=== PATIENT | female | born 1970 | race African-American/Black ===

== ENCOUNTER 2018-01-16 11:47 | Emergency (ER) | payer MEDICAID ==
[~2018-01-16] VITALS: Ht 162.6 cm; Wt 63.0 kg
[2018-01-16] MEDS ORDERED: ALBUTEROL (0.083%) 2.5MG/3ML NEB HHN STA (12:40)
[2018-01-16] MEDS ORDERED: IPRATROPIUM BROMIDE (0.02%) 0.5MG/2.5ML NEB HHN STA (12:40)
[2018-01-16] MEDS ORDERED: METHYLPREDNISOLONE SOD SUCC 125 MG/2 ML VIAL IV STA (12:40)
[2018-01-16] MEDS ORDERED: METHYLPREDNISOLONE SOD SUCC 125 MG/2 ML VIAL IM ONE (13:45)
[2018-01-16] MEDS ORDERED: ALBUTEROL (0.083%) 2.5MG/3ML NEB HHN ONE (15:00)
[2018-01-16] MEDS ORDERED: IPRATROPIUM BROMIDE (0.02%) 0.5MG/2.5ML NEB HHN ONE (15:00)
[2018-01-16 16:43] VITALS: BP 160/94
== END 2018-01-16 16:28 | disposition home or self-care (01) ==
LOC: ER 12:45
DX: J45.901 Unspecified asthma with (acute) exacerbation (principal); J06.9 Acute upper respiratory infection, unspecified; E11.9 Type 2 diabetes mellitus without complications; I10 Essential (primary) hypertension
CPT/HCPCS: 71045; 94640; 96372; 99284; J2930; J7611

== ENCOUNTER 2018-03-20 08:51 | Inpatient (IN) | payer MEDICAID ==
[~2018-03-20] VITALS: Ht 165.1 cm; Wt 136.1 kg
[2018-03-20] MEDS ORDERED: IPRATROPIUM BROMIDE (0.02%) 0.5MG/2.5ML NEB HHN STA ×3 (09:30→13:06)
[2018-03-20] MEDS ORDERED: METHYLPREDNISOLONE SOD SUCC 125 MG/2 ML VIAL IV STA (09:30)
[2018-03-20] MEDS ORDERED: MAGNESIUM 2 G PREMIX 50 ML IV ONE (09:30)
[2018-03-20] MEDS ORDERED: ALBUTEROL (0.083%) 2.5MG/3ML NEB HHN STA ×3 (09:30→13:06)
[2018-03-20] MEDS ORDERED: ALBUTEROL (0.5%) 2.5MG/0.5ML NEB HHN ONE ×3 (09:45→13:30)
[2018-03-20] MEDS ORDERED: ALBUTEROL (0.083%) 2.5MG/3ML NEB ONE ×3 (09:46→13:31)
[2018-03-20] MEDS ORDERED: IPRATROPIUM BROMIDE (0.02%) 0.5MG/2.5ML NEB ONE ×3 (09:46→13:31)
[2018-03-20 12:11] LABS: BASOPHILS % 0.3 % (0.0-2.0); HEMATOCRIT. 41.4 % (36.0-48.0); HEMOGLOBIN. 13.1 g/dL (12.0-16.0); LYMPHOCYTES % 9.2 % (20.0-50.0); MEAN CORPUSCULAR HEMOGLOBIN 27.7 pg (28.0-32.0); MEAN CORPUSCULAR VOLUME 87.1 fL (81.0-99.0); MEAN PLATELET VOLUME 10.1 fl (7.4-10.4); MONOCYTES % 1.6 % (2.0-8.0); NEUTROPHILS % 88.9 % (40.0-76.0); PLATELET 258 x1000/uL (130-400); RED BLOOD CELL COUNT 4.75 mill/uL (4.2-5.4); RED CELL DISTRIBUTION WIDTH 14.1 % (11.6-14.6)
[2018-03-20 12:13] LABS: CHLORIDE 102 mEq/L (98-107)
[2018-03-20 12:22] LABS: D-DIMER 0.24 mg/L FEU (<0.50); INR 1.1; PROTHROMBIN TIME 11.1 sec (9.1-11.1)
[2018-03-20] MEDS ORDERED: SODIUM CHLORIDE 0.9% 1,000 ML IV ONE (12:31)
[2018-03-20 15:00] LABS: CLARITY URINE CLEAR (CLEAR); COLOR URINE YELLOW (YELLOW); KETONES URINE 1+ (NEGATIVE); LEUKOCYTE ESTERASE URINE NEGATIVE (NEGATIVE); NITRITE URINE NEGATIVE (NEGATIVE); OCCULT BLOOD URINE TRACE (NEGATIVE); PROTEIN URINE 3+ (NEGATIVE); SPECIFIC GRAVITY URINE 1.033 (1.005-1.030); UROBILINOGEN URINE 0.2 E.U./dL (0.2-1.0)
[2018-03-20] MEDS ORDERED: IPRATROPIUM/ALBUTEROL 0.5-3(2.5)MG/3ML NEB HHN PRN (15:15)
[2018-03-20] MEDS ORDERED: GUAIFENESIN-DM 200MG-20MG/10ML UDC PO PRN (15:15)
[2018-03-20] MEDS ORDERED: CLONIDINE 0.1MG TABLET PO PRN (15:15)
[2018-03-20] MEDS ORDERED: ACETAMINOPHEN 325MG TABLET PO PRN (15:15)
[2018-03-20] MEDS ORDERED: CEFTRIAXONE 1 G PREMIX 50 ML IV SCH (15:15)
[2018-03-20] MEDS ORDERED: IPRATROPIUM/ALBUTEROL 0.5-3(2.5)MG/3ML NEB HHN SCH (16:00)
[2018-03-20] MEDS: METHYLPREDNISOLONE SOD SUCC 40 MG/ML VIAL IV SCH ×2 (17:25→23:48)
[2018-03-20] MEDS ORDERED: ENOXAPARIN 40MG/0.4ML SYR SUBCUT SCH (18:00)
[2018-03-20] MEDS ORDERED: AZITHROMYCIN 500 MG TABLET PO SCH (18:00)
[2018-03-20] MEDS: MONTELUKAST SODIUM 10MG TABLET PO SCH (18:25)
[2018-03-20 19:15] LABS: *AMPHETAMINES SCREEN URINE NEGATIVE (NEGATIVE)
[2018-03-20 19:16] LABS: *BARBITURATES SCREEN URINE NEGATIVE (NEGATIVE); *BENZODIAZEPINES SCREEN URINE NEGATIVE (NEGATIVE); *COCAINE SCREEN URINE NEGATIVE (NEGATIVE); METHADONE URINE SCREEN NEGATIVE (NEGATIVE); OPIATES URINE SCREEN NEGATIVE (NEGATIVE); PHENCYCLIDINE URINE SCREEN NEGATIVE (NEGATIVE)
[2018-03-20 19:24] LABS: CANNABINOID URINE SCREEN PRESUMTIVE POSITIVE (NEGATIVE)
[2018-03-20] MEDS: METFORMIN HCL 500MG TABLET PO SCH (19:39)
[2018-03-20] MEDS: AMLODIPINE 5MG TABLET PO SCH (22:31)
[2018-03-20 23:19] VITALS: BP 136/70
[2018-03-20] MEDS ORDERED: ONDANSETRON HCL 4MG/2ML INJ IV PRN (23:47)
[2018-03-20] MEDS: GUAIFENESIN 600MG ER TABLET PO SCH (23:48)
[2018-03-20] MEDS ORDERED: DEXTROSE 50% WATER 50ML SYRINGE IV PRN (23:50)
[2018-03-20 23:54] VITALS: BP 136/70
[2018-03-21] MEDS ORDERED: AMLO10TA80 MT (00:10)
[2018-03-21] MEDS ORDERED: ALLO100T PO (00:10)
[2018-03-21] MEDS ORDERED: PARO10TA87 PO (00:10)
[2018-03-21] MEDS ORDERED: BENA10TA10 PO (00:10)
[2018-03-21] MEDS ORDERED: ASPI-1158 PO (00:10)
[2018-03-21] MEDS ORDERED: HYDR12.529 PO (00:10)
[2018-03-21] MEDS ORDERED: CHOL20004 PO (00:10)
[2018-03-21] MEDS ORDERED: METF-416 PO (00:10)
[2018-03-21] MEDS: BLOOD SUGAR DIAGNOSTIC STRIP TEST SCH ×5 (00:16→21:21)
[2018-03-21] MEDS: INSULIN LISPRO 100 UNITS/ML SUBCUT SCH ×5 (00:28→21:00)
[2018-03-21] MEDS: AZITHROMYCIN 500 MG TABLET PO SCH ×2 (00:30→22:27)
[2018-03-21] MEDS: INSULIN GLARGINE UD 100 UNITS/ML SYR SUBCUT SCH ×3 (00:43→22:26)
[2018-03-21 04:00] VITALS: BP 128/72
[2018-03-21 08:00] VITALS: BP 122/85
[2018-03-21 08:54] LABS: BASOPHILS % 0.4 % (0.0-2.0); HEMATOCRIT. 38.2 % (36.0-48.0); LYMPHOCYTES % 10.6 % (20.0-50.0); MEAN CORPUSCULAR HEMOGLOBIN 27.1 pg (28.0-32.0); MEAN CORPUSCULAR VOLUME 86.7 fL (81.0-99.0); MEAN PLATELET VOLUME 9.9 fl (7.4-10.4); MONOCYTES % 4.3 % (2.0-8.0); NEUTROPHILS % 84.7 % (40.0-76.0); PLATELET 262 x1000/uL (130-400); RED CELL DISTRIBUTION WIDTH 14.1 % (11.6-14.6)
[2018-03-21] MEDS ORDERED: ENOXAPARIN 40MG/0.4ML SYR SUBCUT SCH (09:00)
[2018-03-21] MEDS: METFORMIN HCL 500MG TABLET PO SCH ×2 (09:02→17:20)
[2018-03-21] MEDS: GUAIFENESIN 600MG ER TABLET PO SCH ×2 (09:02→21:32)
[2018-03-21] MEDS: METHYLPREDNISOLONE SOD SUCC 40 MG/ML VIAL IV SCH ×3 (09:02→22:30)
[2018-03-21] MEDS: AMLODIPINE 5MG TABLET PO SCH ×2 (09:03→21:36)
[2018-03-21 09:08] LABS: CHLORIDE 104 mEq/L (98-107)
[2018-03-21 12:00] VITALS: BP 141/84
[2018-03-21] MEDS ORDERED: CEFTRIAXONE 1 G PREMIX 50 ML IV SCH ×2 (13:30→15:30)
[2018-03-21] MEDS: IPRATROPIUM/ALBUTEROL 0.5-3(2.5)MG/3ML NEB HHN SCH ×2 (15:38→20:34)
[2018-03-21 16:00] VITALS: BP 141/75
[2018-03-21] MEDS: MONTELUKAST SODIUM 10MG TABLET PO SCH (17:20)
[2018-03-21] MEDS: ENOXAPARIN 40MG/0.4ML SYR SUBCUT SCH (17:21)
[2018-03-21 20:00] VITALS: BP 128/74
[2018-03-21] MEDS: GLIPIZIDE 10MG TABLET PO SCH (21:32)
[2018-03-22] VITALS: BP 121/53
[2018-03-22] MEDS: IPRATROPIUM/ALBUTEROL 0.5-3(2.5)MG/3ML NEB HHN SCH ×5 (00:33→14:54)
[2018-03-22 04:00] VITALS: BP 124/63
[2018-03-22] MEDS: BLOOD SUGAR DIAGNOSTIC STRIP TEST SCH ×2 (06:25→12:31)
[2018-03-22] MEDS: INSULIN LISPRO 100 UNITS/ML SUBCUT SCH ×2 (06:40→13:04)
[2018-03-22] MEDS: METHYLPREDNISOLONE SOD SUCC 40 MG/ML VIAL IV SCH (06:41)
[2018-03-22] MEDS: ENOXAPARIN 40MG/0.4ML SYR SUBCUT SCH (06:41)
[2018-03-22 08:00] VITALS: BP 152/86
[2018-03-22] MEDS: GLIPIZIDE 10MG TABLET PO SCH (10:13)
[2018-03-22] MEDS: METFORMIN HCL 500MG TABLET PO SCH (10:13)
[2018-03-22] MEDS: AMLODIPINE 5MG TABLET PO SCH (10:13)
[2018-03-22] MEDS: GUAIFENESIN 600MG ER TABLET PO SCH (10:13)
[2018-03-22] MEDS: INSULIN GLARGINE UD 100 UNITS/ML SYR SUBCUT SCH (10:15)
[2018-03-22 12:00] VITALS: BP 156/87
[2018-03-22 13:23] VITALS: BP 18/156
== END 2018-03-22 16:06 | disposition home or self-care (01) | DRG 720 ==
LOC: ER 09:13 → 5WST 14:21 → ENRESERV 22:03 → 5WST 03-21 05:18
PROVIDERS: ADMIT Internal Medicine; ATTEND Internal Medicine
DX: A41.9 Sepsis, unspecified organism (principal); J96.00 Acute respiratory failure, unspecified whether with hypoxia or hypercapnia; J45.901 Unspecified asthma with (acute) exacerbation; E66.2 Morbid (severe) obesity with alveolar hypoventilation; Z68.42 Body mass index [BMI] 45.0-49.9, adult; J18.9 Pneumonia, unspecified organism; K21.9 Gastro-esophageal reflux disease without esophagitis; E11.9 Type 2 diabetes mellitus without complications; I10 Essential (primary) hypertension; F12.90 Cannabis use, unspecified, uncomplicated; K46.9 Unspecified abdominal hernia without obstruction or gangrene; K76.0 Fatty (change of) liver, not elsewhere classified; M10.9 Gout, unspecified; Z79.84 Long term (current) use of oral hypoglycemic drugs; Z79.82 Long term (current) use of aspirin; Z79.899 Other long term (current) drug therapy
CPT/HCPCS: 36415; 71045; 80048; 80305; 82962; 83036; 83880; 84484; 85379; 87070; 87804; 93005; 93306; 93970; 94640; 96372; 99285; J0696; J1650; J1815; J2920; J2930; J3475; J7030; J7050; J7611; J7620

== ENCOUNTER 2018-04-06 10:22 | Emergency (ER) | payer MEDICAID ==
[~2018-04-06] VITALS: Ht 165.1 cm; Wt 138.0 kg
[~2018-04-06 10:22] MED LIST: ALLO100T PO; AMLO10TA80 MT; ASPI-1158 PO; BENA10TA10 PO; CHOL20004 PO; HYDR12.529 PO; METF-416 PO; PARO10TA87 PO
[2018-04-06] MEDS ORDERED: KETOROLAC 30MG/ML VIAL IM ONE (14:45)
[2018-04-06 17:14] VITALS: BP 119/74
== END 2018-04-06 17:14 | disposition home or self-care (01) ==
LOC: ER 10:47
DX: S93.401A Sprain of unspecified ligament of right ankle, initial encounter (principal); I10 Essential (primary) hypertension; E11.9 Type 2 diabetes mellitus without complications; J45.909 Unspecified asthma, uncomplicated; W01.0XXA Fall on same level from slipping, tripping and stumbling without subsequent striking against object, initial encounter; Y93.9 Activity, unspecified; Y92.9 Unspecified place or not applicable; Z79.82 Long term (current) use of aspirin
CPT/HCPCS: 73610; 73630; 96372; 99283; J1885

== ENCOUNTER 2020-12-23 14:04 | Emergency (ER) | payer MEDICAID ==
[~2020-12-23] VITALS: Ht 165.1 cm; Wt 131.0 kg
[~2020-12-23 14:04] MED LIST changes: -ASPI-1158 PO; +ASPI-1406 PO; -BENA10TA10 PO; +BENA10TA74 PO
[2020-12-23] MEDS ORDERED: INSULIN REGULAR (HUMULIN R) 300UNITS/3ML VIAL IV ONE (16:45)
[2020-12-23] MEDS ORDERED: SODIUM CHLORIDE 0.9% 1,000 ML IV ONE (16:45)
[2020-12-23 17:10] LABS: CHLORIDE 97 mEq/L (98-107)
[2020-12-23 17:19] LABS: BETA HYDROXYBUTYRATE 0.4 mMol/L (0.0-0.3)
[2020-12-23 18:23] LABS: CLARITY URINE CLEAR (CLEAR); COLOR URINE YELLOW (YELLOW); KETONES URINE TRACE (NEGATIVE); LEUKOCYTE ESTERASE URINE NEGATIVE (NEGATIVE); NITRITE URINE NEGATIVE (NEGATIVE); OCCULT BLOOD URINE NEGATIVE (NEGATIVE); PROTEIN URINE 1+ (NEGATIVE); SPECIFIC GRAVITY URINE 1.039 (1.005-1.030); UROBILINOGEN URINE 0.2 E.U./dL (0.2-1.0)
[2020-12-23 20:00] VITALS: BP 138/78
== END 2020-12-23 20:42 | disposition home or self-care (01) ==
LOC: ER 14:04
DX: E11.65 Type 2 diabetes mellitus with hyperglycemia (principal); J45.909 Unspecified asthma, uncomplicated; E03.9 Hypothyroidism, unspecified; I10 Essential (primary) hypertension; Z79.82 Long term (current) use of aspirin
CPT/HCPCS: 36415; 80048; 81003; 82010; 82962; 96361; 96374; 99285; J1815; J7030; Z7610

== ENCOUNTER 2022-04-26 05:29 | Inpatient (IN) | payer MEDICARE, OTHER ==
[~2022-04-26] VITALS: Ht 165.1 cm; Wt 128.4 kg
[~2022-04-26 05:29] MED LIST changes: -PARO10TA87 PO
[2022-04-26] MEDS ORDERED: ALBUTEROL (0.083%) 2.5MG/3ML NEB HHN STA (05:40)
[2022-04-26] MEDS ORDERED: IPRATROPIUM BROMIDE (0.02%) 0.5MG/2.5ML NEB HHN STA (05:40)
[2022-04-26] MEDS ORDERED: METHYLPREDNISOLONE SOD SUCC 125 MG/2 ML VIAL IV STA (05:40)
[2022-04-26] MEDS ORDERED: ASPIRIN 81MG TABLET PO ONE (05:45)
[2022-04-26] MEDS ORDERED: MAGNESIUM 2 G PREMIX 50 ML IV ONE (05:45)
[2022-04-26 06:02] LABS: BASOPHILS % 0.5 % (0.0-2.0); HEMATOCRIT. 39.1 % (36.0-48.0); HEMOGLOBIN. 12.2 g/dL (12.0-16.0); LYMPHOCYTES % 32.8 % (20.0-50.0); MEAN CORPUSCULAR HEMOGLOBIN 27.4 pg (28.0-32.0); MEAN CORPUSCULAR VOLUME 87.7 fL (81.0-99.0); MEAN PLATELET VOLUME 10.3 fl (7.4-10.4); MONOCYTES % 4.8 % (2.0-8.0); NEUTROPHILS % 60.9 % (40.0-76.0); PLATELET 250 x1000/uL (130-400); RED BLOOD CELL COUNT 4.46 mill/uL (4.2-5.4); RED CELL DISTRIBUTION WIDTH 15.2 % (11.6-14.6)
[2022-04-26 06:11] LABS: CHLORIDE 103 mEq/L (98-107)
[2022-04-26] MEDS ORDERED: AZITHROMYCIN 500MG/250ML 250 ML IV ONE (07:15)
[2022-04-26] MEDS ORDERED: CEFTRIAXONE 1 G PREMIX 50 ML IV ONE (07:15)
[2022-04-26] MEDS ORDERED: OSELTAMIVIR 75MG CAPSULE PO ONE (07:15)
[2022-04-26] MEDS ORDERED: FUROSEMIDE 40MG/4ML VIAL IVP ONE (07:15)
[2022-04-26 07:52] LABS: BG BASE EXCESS -3.6 mmol/L (-2.0-2.0); BG CARBOXYHEMOGLOBIN 0.8 % (0.5-1.5); BG DEOXYHEMOGLOBIN 0.1 % (0.0-5.0); BG FRACTION INSPIRED OXYGEN 100; BG HCO3 ACT 23.1 mmol/L (22.0-26.0); BG METHEMOGLOBIN 0.4 % (0.0-1.5); BG OXYGEN SATURATION 99.9 % (92.0-98.5); BG OXYHEMOGLOBIN 98.7 % (94.0-97.0); BG PCO2 48.3 mmHg (35.0-45.0); BG PH 7.298 (7.350-7.450); BG PO2 470.8 mmHg (75.0-100.0); BG SAMPLE SITE RIGHT BRACHIAL; BG TOTAL HEMOGLOBIN 13.2 g/dL (12.0-18.0); BG TOTAL RESPIRATORY RATE 29 b/min; BG VENT MODE MASK - CPAP
[2022-04-26 08:46] LABS: CLARITY URINE CLOUDY (CLEAR); COLOR URINE DARK YELLOW (YELLOW); KETONES URINE NEGATIVE (NEGATIVE); LEUKOCYTE ESTERASE URINE NEGATIVE (NEGATIVE); NITRITE URINE NEGATIVE (NEGATIVE); OCCULT BLOOD URINE TRACE (NEGATIVE); PROTEIN URINE 3+ (NEGATIVE); SPECIFIC GRAVITY URINE 1.028 (1.005-1.030); UROBILINOGEN URINE 0.2 E.U./dL (0.2-1.0)
[2022-04-26] MEDS ORDERED: ACETAMINOPHEN 325MG TABLET PO PRN ×2 (11:30)
[2022-04-26] MEDS ORDERED: CLONIDINE 0.1MG TABLET PO PRN (11:30)
[2022-04-26] MEDS ORDERED: MAGNESIUM/ALUMINUM HYDROXIDE/SIMETHICONE 30ML UDC PO PRN (11:30)
[2022-04-26] MEDS ORDERED: IPRATROPIUM/ALBUTEROL 0.5-3(2.5)MG/3ML NEB HHN PRN (11:30)
[2022-04-26] MEDS ORDERED: GUAIFENESIN 200MG/10ML SUGAR FREE UDC PO PRN (11:30)
[2022-04-26] MEDS ORDERED: ONDANSETRON HCL 4MG/2ML INJ IV PRN (11:30)
[2022-04-26] MEDS ORDERED: DEXTROSE 50% WATER 50ML SYRINGE IV PRN (14:15)
[2022-04-26] MEDS: ENOXAPARIN 30MG/0.3ML SYR SUBCUT SCH (14:18)
[2022-04-26] MEDS: IPRATROPIUM/ALBUTEROL 0.5-3(2.5)MG/3ML NEB HHN SCH ×2 (15:25→20:46)
[2022-04-26] MEDS: BLOOD SUGAR DIAGNOSTIC STRIP TEST SCH ×2 (18:42→21:23)
[2022-04-26] MEDS: INSULIN LISPRO 100 UNITS/ML SUBCUT SCH (19:13)
[2022-04-26 20:39] LABS: BG BASE EXCESS -1.1 mmol/L (-2.0-2.0); BG CARBOXYHEMOGLOBIN 0.4 % (0.5-1.5); BG DEOXYHEMOGLOBIN 3.1 % (0.0-5.0); BG FRACTION INSPIRED OXYGEN 36; BG HCO3 ACT 24.1 mmol/L (22.0-26.0); BG METHEMOGLOBIN 0.3 % (0.0-1.5); BG OXYGEN SATURATION 96.9 % (92.0-98.5); BG OXYHEMOGLOBIN 96.2 % (94.0-97.0); BG PCO2 41.7 mmHg (35.0-45.0); BG PH 7.379 (7.350-7.450); BG PO2 89.9 mmHg (75.0-100.0); BG SAMPLE SITE RIGHT RADIAL; BG VENT MODE NASAL CANNULA
[2022-04-26] MEDS: CYCLOBENZAPRINE 10MG TABLET PO SCH (21:23)
[2022-04-26] MEDS: ATORVASTATIN CALCIUM 20MG TABLET PO SCH (21:23)
[2022-04-27] MEDS: INSULIN GLARGINE 100 UNITS/ML SUBCUT SCH ×2 (00:10→21:41)
[2022-04-27 01:05] VITALS: BP 132/75
[2022-04-27] MEDS: ENOXAPARIN 30MG/0.3ML SYR SUBCUT SCH (01:39)
[2022-04-27 03:26] LABS: TOTAL IRON BINDING CAPACITY 353 ug/dL (250-450)
[2022-04-27 03:47] LABS: FOLIC ACID (FOLATE) SERUM 10.2 ng/mL (>5.38)
[2022-04-27 04:00] VITALS: BP 125/75
[2022-04-27] MEDS: IPRATROPIUM/ALBUTEROL 0.5-3(2.5)MG/3ML NEB HHN SCH ×4 (06:12→20:47)
[2022-04-27] MEDS: LEVOTHYROXINE SODIUM 112MCG TABLET PO SCH (06:23)
[2022-04-27] MEDS: BLOOD SUGAR DIAGNOSTIC STRIP TEST SCH ×4 (06:27→21:36)
[2022-04-27] MEDS: INSULIN LISPRO 100 UNITS/ML SUBCUT SCH ×3 (06:27→16:37)
[2022-04-27 06:31] LABS: CHLORIDE 106 mEq/L (98-107)
[2022-04-27 06:38] LABS: BASOPHILS % 0.4 % (0.0-2.0); HEMATOCRIT. 38.6 % (36.0-48.0); HEMOGLOBIN. 12.1 g/dL (12.0-16.0); LYMPHOCYTES % 18.8 % (20.0-50.0); MEAN CORPUSCULAR HEMOGLOBIN 27.4 pg (28.0-32.0); MEAN CORPUSCULAR VOLUME 87.7 fL (81.0-99.0); MEAN PLATELET VOLUME 10.4 fl (7.4-10.4); MONOCYTES % 6.5 % (2.0-8.0); NEUTROPHILS % 74.3 % (40.0-76.0); PLATELET 226 x1000/uL (130-400); RED CELL DISTRIBUTION WIDTH 15.6 % (11.6-14.6)
[2022-04-27 06:46] LABS: HDL CHOLESTEROL 63 mg/dL (40-59); LDL CHOLESTEROL 80 mg/dL (5-100); T4 FREE 0.94 ng/dL (0.76-1.46)
[2022-04-27 07:08] LABS: HEPATITIS B SURFACE ANTIGEN NEGATIVE
[2022-04-27 08:02] VITALS: BP 144/75
[2022-04-27] MEDS ORDERED: CEFTRIAXONE 1 G PREMIX 50 ML IV SCH (08:30)
[2022-04-27] MEDS ORDERED: FUROSEMIDE 20MG TABLET PO SCH (09:00)
[2022-04-27 09:48] LABS: BG BASE EXCESS 1.1 mmol/L (-2.0-2.0); BG CARBOXYHEMOGLOBIN 0.4 % (0.5-1.5); BG DEOXYHEMOGLOBIN 8.2 % (0.0-5.0); BG FRACTION INSPIRED OXYGEN 21; BG HCO3 ACT 26.9 mmol/L (22.0-26.0); BG METHEMOGLOBIN 0.2 % (0.0-1.5); BG OXYGEN SATURATION 91.8 % (92.0-98.5); BG OXYHEMOGLOBIN 91.2 % (94.0-97.0); BG PCO2 47.3 mmHg (35.0-45.0); BG PH 7.372 (7.350-7.450); BG PO2 64.1 mmHg (75.0-100.0); BG SAMPLE SITE RIGHT RADIAL; BG TOTAL HEMOGLOBIN 12.3 g/dL (12.0-18.0); BG VENT MODE ROOM AIR
[2022-04-27] MEDS: FUROSEMIDE 40MG/4ML VIAL IVP SCH (09:49)
[2022-04-27] MEDS: ASPIRIN 81MG TABLET PO SCH (09:49)
[2022-04-27] MEDS: BENAZEPRIL 10MG TABLET PO SCH (09:50)
[2022-04-27] MEDS: AMLODIPINE 10MG TABLET PO SCH (09:50)
[2022-04-27] MEDS: CHOLECALCIFEROL (D3) 1000 UNIT TABLET PO SCH (09:50)
[2022-04-27] MEDS: PANTOPRAZOLE 40MG DR TABLET PO SCH (09:50)
[2022-04-27] MEDS: AZITHROMYCIN 500 MG in DEXT 5% WATER 250 ML IV SCH (09:50)
[2022-04-27 12:00] VITALS: BP 109/58
[2022-04-27] MEDS: CEFTRIAXONE 1,000 MG in DEXTROSE 5% WATER 50 ML IV SCH (14:02)
[2022-04-27] MEDS: ENOXAPARIN 40MG/0.4ML SYR SUBCUT SCH (14:06)
[2022-04-27 16:00] VITALS: BP 107/78
[2022-04-27] MEDS: PREDNISONE 20MG TABLET PO SCH (16:34)
[2022-04-27] MEDS ORDERED: IPRA3AMP9 NEB (16:43)
[2022-04-27 20:00] VITALS: BP 132/77
[2022-04-27] MEDS: BUDESONIDE 0.5MG/2ML NEB HHN SCH (20:47)
[2022-04-27] MEDS: CYCLOBENZAPRINE 10MG TABLET PO SCH (21:35)
[2022-04-27] MEDS: ATORVASTATIN CALCIUM 20MG TABLET PO SCH (21:35)
[2022-04-28] VITALS: BP 128/85
[2022-04-28] MEDS: IPRATROPIUM/ALBUTEROL 0.5-3(2.5)MG/3ML NEB HHN SCH ×4 (01:22→21:03)
[2022-04-28] MEDS: ENOXAPARIN 40MG/0.4ML SYR SUBCUT SCH ×2 (01:48→15:15)
[2022-04-28 04:00] VITALS: BP 125/73
[2022-04-28] MEDS: PANTOPRAZOLE 40MG DR TABLET PO SCH (05:53)
[2022-04-28] MEDS: LEVOTHYROXINE SODIUM 112MCG TABLET PO SCH (05:53)
[2022-04-28] MEDS: BLOOD SUGAR DIAGNOSTIC STRIP TEST SCH ×4 (06:06→21:31)
[2022-04-28] MEDS: INSULIN LISPRO 100 UNITS/ML SUBCUT SCH ×3 (06:06→18:07)
[2022-04-28 06:26] LABS: BASOPHILS % 0.4 % (0.0-2.0); EOSINOPHILS % 0.1 % (0.0-5.0); HEMATOCRIT. 39.1 % (36.0-48.0); HEMOGLOBIN. 12.1 g/dL (12.0-16.0); MEAN CORPUSCULAR HEMOGLOBIN 27.1 pg (28.0-32.0); MEAN CORPUSCULAR VOLUME 87.4 fL (81.0-99.0); MEAN PLATELET VOLUME 10.4 fl (7.4-10.4); MONOCYTES % 7.5 % (2.0-8.0); PLATELET 215 x1000/uL (130-400); RED BLOOD CELL COUNT 4.48 mill/uL (4.2-5.4); RED CELL DISTRIBUTION WIDTH 15.9 % (11.6-14.6)
[2022-04-28 06:32] LABS: CHLORIDE 107 mEq/L (98-107)
[2022-04-28 08:00] VITALS: BP 136/87
[2022-04-28] MEDS: BUDESONIDE 0.5MG/2ML NEB HHN SCH ×2 (08:16→21:03)
[2022-04-28] MEDS: CHOLECALCIFEROL (D3) 1000 UNIT TABLET PO SCH (09:32)
[2022-04-28] MEDS: ASPIRIN 81MG TABLET PO SCH (09:32)
[2022-04-28] MEDS: BENAZEPRIL 10MG TABLET PO SCH (09:33)
[2022-04-28] MEDS: AMLODIPINE 10MG TABLET PO SCH (09:33)
[2022-04-28] MEDS: PREDNISONE 20MG TABLET PO SCH ×2 (09:33→18:06)
[2022-04-28] MEDS: CARVEDILOL 3.125 MG TABLET PO SCH ×2 (09:34→21:28)
[2022-04-28] MEDS: FUROSEMIDE 40MG/4ML VIAL IVP SCH ×2 (09:35→18:06)
[2022-04-28] MEDS: AZITHROMYCIN 500 MG in DEXT 5% WATER 250 ML IV SCH (10:04)
[2022-04-28 12:00] VITALS: BP 125/78
[2022-04-28] MEDS ORDERED: P20 MT (12:45)
[2022-04-28] MEDS: CEFTRIAXONE 1,000 MG in DEXTROSE 5% WATER 50 ML IV SCH (13:00)
[2022-04-28 16:00] VITALS: BP 125/78
[2022-04-28 20:00] VITALS: BP 113/72
[2022-04-28] MEDS: ATORVASTATIN CALCIUM 20MG TABLET PO SCH (21:27)
[2022-04-28] MEDS: CYCLOBENZAPRINE 10MG TABLET PO SCH (21:27)
[2022-04-28] MEDS: INSULIN GLARGINE 100 UNITS/ML SUBCUT SCH (21:31)
[2022-04-29] VITALS: BP 113/61
[2022-04-29] MEDS: IPRATROPIUM/ALBUTEROL 0.5-3(2.5)MG/3ML NEB HHN SCH ×4 (00:51→20:23)
[2022-04-29] MEDS: ENOXAPARIN 40MG/0.4ML SYR SUBCUT SCH ×2 (02:14→13:59)
[2022-04-29 04:00] VITALS: BP 123/72
[2022-04-29] MEDS: LEVOTHYROXINE SODIUM 112MCG TABLET PO SCH (06:44)
[2022-04-29] MEDS: BLOOD SUGAR DIAGNOSTIC STRIP TEST SCH ×4 (06:47→21:50)
[2022-04-29] MEDS: INSULIN LISPRO 100 UNITS/ML SUBCUT SCH ×5 (06:51→22:04)
[2022-04-29] MEDS: BUDESONIDE 0.5MG/2ML NEB HHN SCH ×2 (07:38→20:31)
[2022-04-29 08:00] VITALS: BP 142/58
[2022-04-29 08:05] LABS: BASOPHILS % 0.2 % (0.0-2.0); EOSINOPHILS % 0.1 % (0.0-5.0); HEMATOCRIT. 38.4 % (36.0-48.0); HEMOGLOBIN. 12.2 g/dL (12.0-16.0); LYMPHOCYTES % 23.5 % (20.0-50.0); MEAN CORPUSCULAR HEMOGLOBIN 27.5 pg (28.0-32.0); MEAN CORPUSCULAR VOLUME 86.7 fL (81.0-99.0); MEAN PLATELET VOLUME 10.6 fl (7.4-10.4); MONOCYTES % 6.5 % (2.0-8.0); NEUTROPHILS % 69.7 % (40.0-76.0); PLATELET 241 x1000/uL (130-400); RED BLOOD CELL COUNT 4.44 mill/uL (4.2-5.4); RED CELL DISTRIBUTION WIDTH 15.2 % (11.6-14.6)
[2022-04-29 08:12] LABS: CHLORIDE 104 mEq/L (98-107)
[2022-04-29] MEDS: PREDNISONE 20MG TABLET PO SCH ×2 (09:50→17:55)
[2022-04-29] MEDS: CHOLECALCIFEROL (D3) 1000 UNIT TABLET PO SCH (09:50)
[2022-04-29] MEDS: CARVEDILOL 3.125 MG TABLET PO SCH ×2 (09:53→21:50)
[2022-04-29] MEDS: AZITHROMYCIN 500 MG in DEXT 5% WATER 250 ML IV SCH (09:54)
[2022-04-29] MEDS: FAMOTIDINE 20MG TABLET PO SCH ×2 (09:54→21:45)
[2022-04-29] MEDS: FUROSEMIDE 40MG/4ML VIAL IVP SCH ×2 (09:54→17:55)
[2022-04-29] MEDS: ASPIRIN 81MG TABLET PO SCH (11:27)
[2022-04-29] MEDS: BENAZEPRIL 10MG TABLET PO SCH (11:28)
[2022-04-29] MEDS: AMLODIPINE 10MG TABLET PO SCH (11:28)
[2022-04-29 12:00] VITALS: BP 141/68
[2022-04-29] MEDS: CEFTRIAXONE 1,000 MG in DEXTROSE 5% WATER 50 ML IV SCH (13:32)
[2022-04-29 16:00] VITALS: BP_SYST 113; BP_SYST 186; BP_DIAS 64; BP_DIAS 99
[2022-04-29] MEDS ORDERED: DEXTROSE 50% WATER 50ML SYRINGE IV PRN (16:15)
[2022-04-29 20:00] VITALS: BP 126/75
[2022-04-29] MEDS: IPRATROPIUM BROMIDE (0.02%) 0.5MG/2.5ML NEB HHN SCH (20:23)
[2022-04-29] MEDS: ATORVASTATIN CALCIUM 20MG TABLET PO SCH (21:44)
[2022-04-29] MEDS: CYCLOBENZAPRINE 10MG TABLET PO SCH (21:44)
[2022-04-29] MEDS: INSULIN GLARGINE 100 UNITS/ML SUBCUT SCH (21:48)
[2022-04-30] VITALS: BP 116/60
[2022-04-30] MEDS: ALBUTEROL (0.083%) 2.5MG/3ML NEB HHN SCH ×5 (02:01→22:14)
[2022-04-30] MEDS: IPRATROPIUM BROMIDE (0.02%) 0.5MG/2.5ML NEB HHN SCH ×5 (02:01→22:14)
[2022-04-30] MEDS: ENOXAPARIN 40MG/0.4ML SYR SUBCUT SCH ×2 (02:23→14:13)
[2022-04-30 04:00] VITALS: BP 105/63
[2022-04-30] MEDS: BLOOD SUGAR DIAGNOSTIC STRIP TEST SCH ×4 (06:29→20:59)
[2022-04-30] MEDS: LEVOTHYROXINE SODIUM 112MCG TABLET PO SCH (06:29)
[2022-04-30] MEDS: FUROSEMIDE 40MG/4ML VIAL IVP SCH ×2 (06:29→18:00)
[2022-04-30 08:00] VITALS: BP 127/74
[2022-04-30 08:44] LABS: BASOPHILS % 0.4 % (0.0-2.0); EOSINOPHILS % 0.1 % (0.0-5.0); HEMATOCRIT. 40.4 % (36.0-48.0); HEMOGLOBIN. 12.8 g/dL (12.0-16.0); LYMPHOCYTES % 22.3 % (20.0-50.0); MEAN CORPUSCULAR HEMOGLOBIN 27.4 pg (28.0-32.0); MEAN CORPUSCULAR VOLUME 86.4 fL (81.0-99.0); MEAN PLATELET VOLUME 10.4 fl (7.4-10.4); MONOCYTES % 6.6 % (2.0-8.0); NEUTROPHILS % 70.6 % (40.0-76.0); PLATELET 238 x1000/uL (130-400); RED BLOOD CELL COUNT 4.67 mill/uL (4.2-5.4); RED CELL DISTRIBUTION WIDTH 15.5 % (11.6-14.6)
[2022-04-30 08:50] LABS: CHLORIDE 101 mEq/L (98-107)
[2022-04-30 08:57] LABS: PHOSPHORUS 5.8 mg/dL (2.5-4.9)
[2022-04-30] MEDS: CHOLECALCIFEROL (D3) 1000 UNIT TABLET PO SCH (09:22)
[2022-04-30] MEDS: ASPIRIN 81MG TABLET PO SCH (09:22)
[2022-04-30] MEDS: BENAZEPRIL 10MG TABLET PO SCH (09:22)
[2022-04-30] MEDS: PREDNISONE 20MG TABLET PO SCH (09:22)
[2022-04-30] MEDS: FAMOTIDINE 20MG TABLET PO SCH ×2 (09:22→20:53)
[2022-04-30] MEDS: CARVEDILOL 3.125 MG TABLET PO SCH (09:22)
[2022-04-30] MEDS: INSULIN LISPRO 100 UNITS/ML SUBCUT SCH ×7 (09:27→21:00)
[2022-04-30] MEDS: BUDESONIDE 0.5MG/2ML NEB HHN SCH (09:56)
[2022-04-30] MEDS: AZITHROMYCIN 500 MG in DEXT 5% WATER 250 ML IV SCH (10:13)
[2022-04-30] MEDS: DOCUSATE SODIUM 100MG CAPSULE PO PRN (10:23)
[2022-04-30 12:01] VITALS: BP 118/58
[2022-04-30] MEDS: CEFTRIAXONE 1,000 MG in DEXTROSE 5% WATER 50 ML IV SCH (13:43)
[2022-04-30] MEDS: AMLODIPINE 10MG TABLET PO SCH (13:44)
[2022-04-30 16:00] VITALS: BP 124/77
[2022-04-30 20:00] VITALS: BP 134/69
[2022-04-30] MEDS: ATORVASTATIN CALCIUM 20MG TABLET PO SCH (20:53)
[2022-04-30] MEDS: CYCLOBENZAPRINE 10MG TABLET PO SCH (20:53)
[2022-04-30] MEDS: CARVEDILOL 6.25 MG TABLET PO SCH (20:57)
[2022-04-30] MEDS: INSULIN GLARGINE 100 UNITS/ML SUBCUT SCH (22:29)
[2022-05-01] VITALS: BP 121/78
[2022-05-01] MEDS: ALBUTEROL (0.083%) 2.5MG/3ML NEB HHN SCH ×3 (01:49→20:20)
[2022-05-01] MEDS: IPRATROPIUM BROMIDE (0.02%) 0.5MG/2.5ML NEB HHN SCH ×3 (01:49→20:20)
[2022-05-01] MEDS: ENOXAPARIN 40MG/0.4ML SYR SUBCUT SCH ×2 (02:14→15:57)
[2022-05-01 04:00] VITALS: BP 97/58
[2022-05-01 06:46] LABS: HEMATOCRIT 40.2 % (36.0-48.0); HEMOGLOBIN 12.8 g/dL (12.0-16.0); MEAN CORPUSCULAR HEMOGLOBIN 27.4 pg (28.0-32.0); MEAN CORPUSCULAR VOLUME 86.2 fL (81.0-99.0); PLATELET 242 x1000/uL (130-400); RED BLOOD CELL COUNT 4.66 mill/uL (4.2-5.4); RED CELL DISTRIBUTION WIDTH 15.5 % (11.6-14.6)
[2022-05-01] MEDS: BLOOD SUGAR DIAGNOSTIC STRIP TEST SCH ×4 (06:50→21:31)
[2022-05-01] MEDS: LEVOTHYROXINE SODIUM 112MCG TABLET PO SCH (07:09)
[2022-05-01] MEDS: INSULIN LISPRO 100 UNITS/ML SUBCUT SCH ×7 (07:17→21:31)
[2022-05-01 07:36] LABS: CHLORIDE 100 mEq/L (98-107)
[2022-05-01 08:00] VITALS: BP 117/51
[2022-05-01] MEDS: PREDNISONE 20MG TABLET PO SCH (08:56)
[2022-05-01] MEDS: BENAZEPRIL 10MG TABLET PO SCH (08:56)
[2022-05-01] MEDS: CHOLECALCIFEROL (D3) 1000 UNIT TABLET PO SCH (08:56)
[2022-05-01] MEDS: ASPIRIN 81MG TABLET PO SCH (08:56)
[2022-05-01] MEDS: AMLODIPINE 10MG TABLET PO SCH (08:57)
[2022-05-01] MEDS: FAMOTIDINE 20MG TABLET PO SCH ×2 (08:57→21:23)
[2022-05-01] MEDS: FUROSEMIDE 40MG/4ML VIAL IVP SCH ×2 (08:57→18:03)
[2022-05-01] MEDS: CARVEDILOL 6.25 MG TABLET PO SCH ×2 (08:58→21:11)
[2022-05-01] MEDS: AZITHROMYCIN 500 MG in DEXT 5% WATER 250 ML IV SCH (09:07)
[2022-05-01 09:45] LABS: PHOSPHORUS 5.5 mg/dL (2.5-4.9)
[2022-05-01] MEDS: IPRATROPIUM/ALBUTEROL 0.5-3(2.5)MG/3ML NEB HHN SCH (10:19)
[2022-05-01 12:00] VITALS: BP 138/73
[2022-05-01] MEDS: CEFTRIAXONE 1,000 MG in DEXTROSE 5% WATER 50 ML IV SCH (12:18)
[2022-05-01] MEDS ORDERED: NITROGLYCERIN SPRAY/4.9GM CAN TL SCH (12:45)
[2022-05-01] MEDS ORDERED: IOHEXOL-350 100 ML BOTTLE ONE (15:11)
[2022-05-01 16:00] VITALS: BP 157/61
[2022-05-01 20:00] VITALS: BP 94/57
[2022-05-01] MEDS: ATORVASTATIN CALCIUM 20MG TABLET PO SCH (21:23)
[2022-05-01] MEDS: CYCLOBENZAPRINE 10MG TABLET PO SCH (21:23)
[2022-05-01] MEDS: INSULIN GLARGINE 100 UNITS/ML SUBCUT SCH (21:37)
[2022-05-02] VITALS: BP 109/87
[2022-05-02] MEDS: ENOXAPARIN 40MG/0.4ML SYR SUBCUT SCH ×2 (02:15→13:31)
[2022-05-02] MEDS: ALBUTEROL (0.083%) 2.5MG/3ML NEB HHN SCH ×4 (02:40→20:47)
[2022-05-02] MEDS: IPRATROPIUM BROMIDE (0.02%) 0.5MG/2.5ML NEB HHN SCH ×4 (02:40→20:47)
[2022-05-02 04:26] VITALS: BP 108/72
[2022-05-02 06:20] LABS: HEMATOCRIT 39.5 % (36.0-48.0); HEMOGLOBIN 12.6 g/dL (12.0-16.0); MEAN CORPUSCULAR HEMOGLOBIN 27.6 pg (28.0-32.0); MEAN CORPUSCULAR VOLUME 86.5 fL (81.0-99.0); PLATELET 224 x1000/uL (130-400); RED BLOOD CELL COUNT 4.57 mill/uL (4.2-5.4); RED CELL DISTRIBUTION WIDTH 15.7 % (11.6-14.6)
[2022-05-02] MEDS: LEVOTHYROXINE SODIUM 112MCG TABLET PO SCH (07:03)
[2022-05-02] MEDS: BLOOD SUGAR DIAGNOSTIC STRIP TEST SCH ×4 (07:08→21:37)
[2022-05-02] MEDS: INSULIN LISPRO 100 UNITS/ML SUBCUT SCH ×7 (07:11→21:00)
[2022-05-02] MEDS: FUROSEMIDE 40MG/4ML VIAL IVP SCH ×2 (07:15→18:17)
[2022-05-02 08:04] VITALS: BP 151/91
[2022-05-02 08:16] LABS: CHLORIDE 102 mEq/L (98-107)
[2022-05-02 08:24] LABS: PHOSPHORUS 4.8 mg/dL (2.5-4.9)
[2022-05-02] MEDS: CHOLECALCIFEROL (D3) 1000 UNIT TABLET PO SCH (08:49)
[2022-05-02] MEDS: BENAZEPRIL 10MG TABLET PO SCH (08:50)
[2022-05-02] MEDS: DOCUSATE SODIUM 100MG CAPSULE PO PRN (08:55)
[2022-05-02] MEDS: FAMOTIDINE 20MG TABLET PO SCH ×2 (08:55→21:29)
[2022-05-02] MEDS: PREDNISONE 20MG TABLET PO SCH (08:55)
[2022-05-02] MEDS: ASPIRIN 81MG TABLET PO SCH (08:56)
[2022-05-02] MEDS: AMLODIPINE 10MG TABLET PO SCH (08:56)
[2022-05-02] MEDS: CARVEDILOL 6.25 MG TABLET PO SCH ×2 (08:56→21:31)
[2022-05-02] MEDS ORDERED: HEPARIN 1000 UNITS/ML 10ML ONE (10:35)
[2022-05-02] MEDS ORDERED: DIPHENHYDRAMINE 50MG/ML VIAL ONE (10:35)
[2022-05-02] MEDS ORDERED: VERAPAMIL HCL 2.5 MG/1 ML 2ML VIAL IV ONE (10:35)
[2022-05-02] MEDS ORDERED: IODIXANOL 320MG/ML 100 ML BOTTLE IV ONE (10:35)
[2022-05-02] MEDS ORDERED: LIDOCAINE HCL/PF 2% 20MG/ML 5 ML/VIAL ONE (10:36)
[2022-05-02] MEDS ORDERED: FENTANYL CITRATE/PF 50MCG/ML 2ML VIAL ONE (11:07)
[2022-05-02] MEDS ORDERED: MIDAZOLAM HCL 2 MG/2 ML VIAL ONE (11:07)
[2022-05-02 12:00] VITALS: BP 137/62
[2022-05-02] MEDS ORDERED: ACETAMINOPHEN 325MG TABLET PO PRN (12:00)
[2022-05-02] MEDS ORDERED: ATROPINE SULFATE 1MG/10ML SYR IV PRN (12:00)
[2022-05-02 16:00] VITALS: BP 106/79
[2022-05-02 20:00] VITALS: BP 126/79
[2022-05-02] MEDS: CYCLOBENZAPRINE 10MG TABLET PO SCH (21:29)
[2022-05-02] MEDS: ATORVASTATIN CALCIUM 20MG TABLET PO SCH (21:29)
[2022-05-02] MEDS: INSULIN GLARGINE 100 UNITS/ML SUBCUT SCH (21:38)
[2022-05-03] VITALS: BP 93/53
[2022-05-03] MEDS: ENOXAPARIN 40MG/0.4ML SYR SUBCUT SCH (02:00)
[2022-05-03] MEDS: ALBUTEROL (0.083%) 2.5MG/3ML NEB HHN SCH ×3 (02:47→13:25)
[2022-05-03] MEDS: IPRATROPIUM BROMIDE (0.02%) 0.5MG/2.5ML NEB HHN SCH ×3 (02:47→13:25)
[2022-05-03 04:00] VITALS: BP 107/61
[2022-05-03 05:35] LABS: BASOPHILS % 0.2 % (0.0-2.0); EOSINOPHILS % 0.5 % (0.0-5.0); HEMATOCRIT. 39.3 % (36.0-48.0); HEMOGLOBIN. 12.5 g/dL (12.0-16.0); LYMPHOCYTES % 32.9 % (20.0-50.0); MEAN CORPUSCULAR HEMOGLOBIN 27.4 pg (28.0-32.0); MEAN CORPUSCULAR VOLUME 86.1 fL (81.0-99.0); MEAN PLATELET VOLUME 10.3 fl (7.4-10.4); NEUTROPHILS % 59.4 % (40.0-76.0); PLATELET 228 x1000/uL (130-400); RED BLOOD CELL COUNT 4.57 mill/uL (4.2-5.4)
[2022-05-03 06:05] LABS: CHLORIDE 99 mEq/L (98-107)
[2022-05-03] MEDS: FUROSEMIDE 40MG/4ML VIAL IVP SCH (07:14)
[2022-05-03] MEDS: LEVOTHYROXINE SODIUM 112MCG TABLET PO SCH (07:14)
[2022-05-03] MEDS: BLOOD SUGAR DIAGNOSTIC STRIP TEST SCH ×2 (07:15→12:24)
[2022-05-03] MEDS: INSULIN LISPRO 100 UNITS/ML SUBCUT SCH ×4 (07:15→12:28)
[2022-05-03 08:00] VITALS: BP 99/56
[2022-05-03] MEDS ORDERED: PREDNISONE 10MG TABLET PO SCH (09:00)
[2022-05-03] MEDS: AMLODIPINE 10MG TABLET PO SCH (09:00)
[2022-05-03] MEDS: CARVEDILOL 6.25 MG TABLET PO SCH (09:00)
[2022-05-03] MEDS: BENAZEPRIL 10MG TABLET PO SCH (09:00)
[2022-05-03] MEDS: CHOLECALCIFEROL (D3) 1000 UNIT TABLET PO SCH (09:09)
[2022-05-03] MEDS: ASPIRIN 81MG TABLET PO SCH (09:09)
[2022-05-03] MEDS: DOCUSATE SODIUM 100MG CAPSULE PO PRN (09:09)
[2022-05-03] MEDS: FAMOTIDINE 20MG TABLET PO SCH (09:09)
[2022-05-03 12:00] VITALS: BP 120/79
[2022-05-03 13:19] VITALS: BP 120/79
== END 2022-05-03 15:14 | disposition home or self-care (01) | DRG 871 ==
LOC: ER 05:29 → MICUSO 08:57 → EDBEDREQ 09:02 → EDBEDREQTM 09:02 → 3WST 04-27 01:18
PROVIDERS: ADMIT Internal Medicine; ATTEND Internal Medicine
PROC: 5A09357 Assistance with Respiratory Ventilation, Less than 24 Consecutive Hours, Continuous Positive Airway Pressure (ICD-10-PCS; 2022-04-26)
PROC: 4A023N7 Measurement of Cardiac Sampling and Pressure, Left Heart, Percutaneous Approach (ICD-10-PCS; principal; 2022-05-02)
PROC: B211YZZ Fluoroscopy of Multiple Coronary Arteries using Other Contrast (ICD-10-PCS; 2022-05-02)
PROC: B215YZZ Fluoroscopy of Left Heart using Other Contrast (ICD-10-PCS; 2022-05-02)
DX: A41.9 Sepsis, unspecified organism (principal); I21.4 Non-ST elevation (NSTEMI) myocardial infarction; J96.01 Acute respiratory failure with hypoxia; J96.02 Acute respiratory failure with hypercapnia; I50.23 Acute on chronic systolic (congestive) heart failure; E87.20 Acidosis, unspecified; Z68.42 Body mass index [BMI] 45.0-49.9, adult; J44.1 Chronic obstructive pulmonary disease with (acute) exacerbation; J44.0 Chronic obstructive pulmonary disease with (acute) lower respiratory infection; J45.901 Unspecified asthma with (acute) exacerbation; E66.2 Morbid (severe) obesity with alveolar hypoventilation; I25.110 Atherosclerotic heart disease of native coronary artery with unstable angina pectoris; I42.8 Other cardiomyopathies; I11.0 Hypertensive heart disease with heart failure; K76.0 Fatty (change of) liver, not elsewhere classified; Z20.822 Contact with and (suspected) exposure to COVID-19; E03.9 Hypothyroidism, unspecified; F14.90 Cocaine use, unspecified, uncomplicated; I34.0 Nonrheumatic mitral (valve) insufficiency; Z79.82 Long term (current) use of aspirin; Z79.84 Long term (current) use of oral hypoglycemic drugs; Z79.899 Other long term (current) drug therapy; Z68.39 Body mass index [BMI] 39.0-39.9, adult
CPT/HCPCS: 36415; 36600; 71045; 80048; 80053; 80061; 80320; 81003; 82375; 82607; 82746; 82805; 82962; 83036; 83540; 83550; 83605; 83735; 83880; 84100; 84145; 84439; 84443; 84484; 85025; 85027; 85379; 86803; 87340; 87426; 87804; 93005; 93306; 93458; 93970; 94640; 94660; 97162; 97166; 99291; C1769; C1887; C1893; C9803; J0456; J0696; J1200; J1644; J1650; J1815; J1940; J2250; J2930; J3010; J3475; J3490; J7060; J7512; J7626; Q9967; G0480